=== PATIENT | male | born 1980 | race African-American/Black ===

== ENCOUNTER 2024-02-03 12:38 | Emergency (ER) | payer MEDICAID ==
[~2024-02-03] VITALS: Ht 175.3 cm; Wt 75.0 kg
[2024-02-03 12:43] VITALS: O2SAT 99
[2024-02-03] MEDS: ONDANSETRON 4MG ODT PO STA (13:32)
[2024-02-03] MEDS: MAGNESIUM/ALUMINUM HYDROXIDE/SIMETHICONE 30ML UDC PO STA (13:32)
[2024-02-03] MEDS: ACETAMINOPHEN 325MG TABLET PO STA (13:32)
[2024-02-03 13:50] LABS: BASOPHILS % 0.4 % (0.0-2.0); EOSINOPHILS % 0.3 % (0.0-5.0); HEMATOCRIT. 44.3 % (42.0-52.0); HEMOGLOBIN. 14.9 g/dL (14.0-18.0); LYMPHOCYTES % 22.9 % (20.0-50.0); MEAN CORPUSCULAR HEMOGLOBIN 33.3 pg (28.0-32.0); MEAN CORPUSCULAR HGB CONC 33.5 g/dL (31.0-37.0); MEAN CORPUSCULAR VOLUME 99.3 fL (80.0-94.0); MEAN PLATELET VOLUME 8.4 fl (7.4-10.4); MONOCYTES % 8.5 % (2.0-8.0); NEUTROPHILS % 67.9 % (40.0-76.0); PLATELET 156 x1000/uL (130-400); RED BLOOD CELL COUNT 4.46 mill/uL (4.7-6.1); RED CELL DISTRIBUTION WIDTH 13.7 % (11.6-14.6); WHITE BLOOD COUNT 8.1 x1000/uL (4.5-11.0)
[2024-02-03 13:55] LABS: CHLORIDE 103 mEq/L (98-107); SODIUM 138 mEq/L (136-145)
[2024-02-03 13:56] LABS: CALCIUM 9.4 mg/dL (8.7-10.4); CARBON DIOXIDE 26 mEq/L (21-32)
[2024-02-03 14:01] LABS: CREATININE 0.9 mg/dL (0.6-1.3); GLUCOSE 68 mg/dL (70-105)
[2024-02-03 14:02] LABS: UREA NITROGEN BLOOD 9 mg/dL (9-23)
[2024-02-03 14:03] LABS: ALANINE AMINOTRANSFERASE 28 IU/L (10-49); ALBUMIN 4.4 g/dL (3.2-4.8); ASPARTATE AMINOTRANSFERASE 38 IU/L (<34)
[2024-02-03 14:04] LABS: BILIRUBIN DIRECT 0.3 mg/dL (<=3.0); BILIRUBIN TOTAL 1.1 mg/dL (0.1-1.0); PROTEIN TOTAL 6.8 g/dL (6.0-8.3)
[2024-02-03 14:08] LABS: PROTHROMBIN TIME 11.1 sec (9.6-11.0)
[2024-02-03] MEDS ORDERED: FOLIC ACID 1 MG, THIAMINE HCL 100 MG, MVI, ADULT NO.1 10 ML in DEXTROSE 5% WATER 1,000 ML IV ONE (14:15)
[2024-02-03] MEDS ORDERED: ONDA-239 PO (14:45)
[2024-02-03 15:14] VITALS: BP 154/75; PULSE 65; RESP 15; TEMP 37.05852; O2SAT 100
== END 2024-02-03 15:15 | disposition home or self-care (01) ==
LOC: ER 12:38 → EDBEDREQ 13:25 → ER 15:15
DX: R11.2 Nausea with vomiting, unspecified (principal); F10.10 Alcohol abuse, uncomplicated; Y90.9 Presence of alcohol in blood, level not specified
CPT/HCPCS: 99284; 80076; 80048; 83690; 85025; 85610; 36415; Q0162; J3411; J3490; J7070